=== PATIENT | female | born 1995 | race Caucasian/White ===

== ENCOUNTER 2017-02-05 00:18 | Emergency (ER) | payer BC, OTHER ==
[~2017-02-05] VITALS: Ht 177.8 cm; Wt 68.0 kg
[2017-02-05 00:33] VITALS: Ht 177.8 cm; Wt 68.0 kg
[2017-02-05 00:39] VITALS: O2SAT 100
[2017-02-05 01:33] LABS: BUN/CREATININE RATIO 20.7 (10-20); CALCIUM 8.3 mg/dl (8.5-10.1); CREATININE 0.68 mg/dl (0.60-1.20); POTASSIUM 3.4 mmol/L (3.5-5.1)
[2017-02-05 02:40] VITALS: TEMP 36.3
--- NOTE | 2017-02-05 07:04 | EMERGENCY ROOM VISIT NOTE ---
History First contact with patient: 00:31 Chief Complaint: ALCOHOL OVERDOSE Stated Complaint: ALCOHOL OVERDOSE Nursing Triage Summary: Pt brought in by EMS with alcohol intoxication. Pt was out with friends drinking alcohol. When she went back to her apartment she passed out in the bathroom. Pt also was vomiting. Friends concerned for her safety and sent her in. Pt does have abrasion to left hip. Temp 34.9 History of Present Illness The patient is a 21 year old female who presents to the Emergency Department via EMS for evaluation of alcohol overdose. She was drinking with friends this evening. She fell asleep in the bathroom and friends became concerned for her safety and brought her to the emergency department. She denies any other drug use. She reports taking no daily medications. History of present illness is limited secondary to the patient's current state of intoxication. Review of Systems Review of systems limited secondary to the patient's current state of intoxication. Social History Smoking Status: Never Smoker Smokeless Tobacco Use: No Alcohol Use: occasionally Drug Use: none Marital Status: single Housing Status: lives with roommate Occupation Status: [employer] student Current/Historical Medications Unable to Obtain Active Prescriptions or Reported Meds Physical Exam Vital Signs Date Time Temp Pulse Resp B/P Pulse Ox O2 Delivery O2 Flow Rate FiO2 02/05/17 07:11 86 18 113/79 97 02/05/17 06:00 99 18 102/86 98 Room Air 02/05/17 05:02 78 02/05/17 05:00 72 16 108/72 98 Room Air 02/05/17 04:00 69 18 106/59 97 Room Air 02/05/17 02:40 36.3 78 16 117/70 98 Room Air 02/05/17 01:42 35.7 95 17 106/71 99 Room Air 02/05/17 00:50 59 02/05/17 00:39 100 Room Air 02/05/17 00:33 34.9 53 16 105/82 100 Room Air Pain Rating (0-10): 0 Physical Exam VITALS - Vitals are noted on the nurse's note and reviewed by myself. Vital signs stable. GENERAL -21-year-old female, in no acute distress, nondiaphoretic, well- developed well-nourished. The patient is visibly intoxicated. SKIN - The skin was without obvious lacerations, abrasions, or rashes. There is no tenting of the skin. Capillary reflex less than 2 seconds. HEENT - Normocephalic, atraumatic. PERRLA. EOMI. Conjunctiva with mild injection without icterus. Tympanic membranes without erythema or effusion bilaterally no hemotympanum. External auditory canals are clear. Nares patent bilaterally. No epistaxis. Oropharynx without erythema or exudate. Uvula midline. Oral mucosal moist. No lymphadenopathy. Neck is supple without cervical spine tenderness. HEART - Regular rate and rhythm without murmurs gallops or rubs. Peripheral pulses 2+. LUNGS - Clear to auscultation bilaterally without wheezes, rales or rhonchi. ABDOMEN - Positive bowel sounds x 4. Normal tympanic percussion. Soft, nontender, without masses or organomegaly. MUSCULOSKELETAL - Gross motor function of the upper and lower extremities intact. NEUROLOGIC - The patient is visibly intoxicated. Medical Decision & Procedures Laboratory Results 02/05/17 00:55 Test 02/05/17 00:55 Anion Gap 9.0 mmol/L (3-11) Est Creatinine Clear Calc Drug Dose 142.8 ml/min Estimated GFR () 147.0 Estimated GFR (Non- 126.8 BUN/Creatinine Ratio 20.7 (10-20) Calcium Level 8.3 mg/dl (8.5-10.1) Ethyl Alcohol mg/dL 282.0 mg/dl (0-3) Procedure Patient was placed on the quality assurance monitor and monitored throughout the entire extent of their stay. In addition, the patient's pulse oximetry was monitored throughout the entire stay. Any abnormalities or aberrancies were addressed appropriately. ED Course Patient was seen and evaluated by myself. Aspiration precautions were instituted and the patient was placed in the prone position. The patient was placed on the quality assurance monitor and pulse oximetry was monitored throughout the entire stay in the emergency department. Labs were collected. Patient's medical alcohol was found to be elevated at 282.0 mg/dL. Patient was monitored in the emergency department for greater than 7 hours. The patient eventually was awoken and educated on today's visit. They were encouraged to refrain from heavy drinking. All labs and diagnostics were reviewed. Patient was discharged home with a sober friend. Medical Decision Given the patient's presentation and exam findings, I did elect to perform the above-mentioned workup. The patient presents today visibly intoxicated. The patient was monitored constantly throughout entire stay in the emergency setting. Medical alcohol level was elevated significantly at 282.0 mg/dL. After a lengthy stay in the Emergency Department the patient was deemed appropriate for discharge. Patient was discharged home with a sober friend. In the evaluation and treatment of this patient, the following differential diagnoses were considered: Hypoglycemia, Barbiturate Toxicity, Benzodiazepine Toxicity, Depression and Suicidality, Diabetic Ketoacidosis, Encephalitis, Ethylene Glycol Toxicity, Meningitis, Metabolic Acidosis, Opioid Toxicity, CVA, TIA, Intracranial Abnormality, Acute Psychosis, Amongst Others. Impression Primary Impression: Alcohol overdose Departure Information Dispostion Home / Self-Care Condition GOOD Prescriptions Unable to Obtain Active Prescriptions or Reported Meds Referrals No Doctor, Assigned (PCP) Patient Instructions [facility] Additional Instructions You've been seen in the emergency department today for alcohol overdose. Please refrain from excessive drinking. Do not drive or operate machinery for the remainder of the day. For pain control, you can use the following [id number] medicines (if >12 yo): - Regular strength (325mg/tab) Tylenol (acetaminophen) 2 tabs every 4-6 hours as needed. Do not exceed 12 tablets in a 24 hour period. Avoid taking more than 4 grams (4000 mg) of Tylenol per day. This includes any other sources of acetaminophen you may take on a regular basis. - Regular strength (200 mg/tab) Advil (ibuprofen) 1-2 tabs every 4-6 hours as needed. Do not exceed a dose of 3200 mg per day. Follow-up with [facility] as needed. Problem Qualifiers Primary Impression: Alcohol overdose Encounter type: initial encounter Injury intent: accidental or unintentional Qualified Codes: T51.91XA - Toxic effect of unspecified alcohol , accidental (unintentional), initial encounter
[2017-02-05 07:11] VITALS: BP 113/79; PULSE 86; O2SAT 97
== END 2017-02-05 07:12 | disposition home or self-care (01) ==
LOC: C.EDB 00:19
DX: T51.91XA Toxic effect of unspecified alcohol, accidental (unintentional), initial encounter (principal); Y90.8 Blood alcohol level of 240 mg/100 ml or more